=== PATIENT | male | born 1990 | race Caucasian/White ===

== ENCOUNTER 2018-07-25 09:59 | Inpatient (IN) | payer OTHER ==
[~2018-07-25] VITALS: Ht 180.3 cm; Wt 65.8 kg
--- NOTE | 2018-07-25 10:15 | NUR ---
Pre-assessment: Assessed pt in intake office,pt is alert and oriented at this time. pt is being admitted primarily for opiates as he verbalized, pt's mother accompanied pt and assisted in providing information, pt's mother said Dr. Davison (youth specialist) who prescribed pt ativan to take as needed when his is in withdrawal from opiates verbalized " he took 2 milligrams of ativan on the car ride here". pt appears to be anxious, yawning, and guarded. explained unit protocols and procedures and verbalized understanding.
--- NOTE | 2018-07-25 10:26 | NUR ---
ADMISSION Patient arrived on the unit at 1026, patient alert and oriented x4, oriented to unit and to room. 28 year old male from [facility], Patient appears disheveled, unkempt, o odorous, unshaven, dirty fingernails and unwashed clothing with poor oral hygiene. Patient has avoidant eye contact, and worried/irritable facial expression. Patient noted with flat affect and labile mood. Patients BP: 123/67 HR: 106 RR: 20, T: 98.4, PULSE OX: 98% Patient is 5 feet 11 inches. Denies any food or drug allergies. Patient currently exhibiting the following s/sx of withdrawal: agitation, anhedonia, anxiety, chills, decreased appetite, depression, difficulty concentrating, emotional volatility, fatigue, generalized discomfort, elevated heart rate, increased startle response, Enlarged pupils, and flushed, with admitting COW score of: 10. Does not currently recall the name of his primary care physician, but he is located in [place], [place]. SUBSTANCE USE/HISTORY 1. Heroin (smoked) 0.5-1 gram daily for 5.5 months, Patient reports he first used at the age of: 18 years old. Typical Withdrawal symptoms include: " increase anxiety, sweats, restlessness, insomnia, can't stay still,agitated, body aches, runny nose, watery eyes" Last used: 07/25/2018 at 0000, 0.2 grams via inhalation. 2.. Ativan (PO) 2mg "2 or 3 times this week" Patient reports he used for the first time this week. Per patient no withdrawal symptoms have been noted. Last used: 07/25/2018 at 1000, 2mg PO. Patient denies any history of seizures. Is denying any withdrawal induced cardiac complications. MEDICAL/PSYCHIATRIC CONDITIONS Diagnosis: 1. Anxiety Dx: age 21 Patient denies taking any medications for diagnosis. 2. Depression Dx: age 21. Currently taking- Brintellix 10mg PO daily. 3. Schizotypy Dx: 2015. . Currently taking- Brintellix 10mg daily. Denies any past surgical history. Denies any family history of substance abuse Denies any past family medical history. No reports of SI/HI or Involuntary psychiatric hospitalization. TREATMENT HISTORY 4-5 treatment centers, patient verbalized unable to recall the names of them. Patient reports longest period of sobriety was for two years, from April 2016-February 2018. MOTIVATION: Patient reports he began using drugs at the very beginning because they were accessible, and I didnt know any better Patient reports he uses now Because I like it Patient reports It was always hard to stop using them since the very beginning, I was hooked instantly" Verbalized decided to get sober today because Its just time, I just fucked up everything else in my life and this is what has been ruining everything, its time for a change continued to verbalize, the anxiety is too much when I try to stop on my own, I get really strong cravings that I cant control and i feel really sick and end up using again Patient reports barriers for getting/staying sober are, " I lack self discipline and it makes it hard for me to stop on my own. Verbalized support system includes, " my mom, my sponsor and my friends are my support system Patient verbalized the following consequences from using include, using drugs has affected my life negatively, I lost my job, it has fucked up every relationship I have with people, I am unhappy feeling stuck, and addicted, I am ready for change and to get off this shit" Patient verbalized, "Once Im done with detox, I wanna go to a treatment program to continue my sobriety. Patient encouraged to verbalize feeling sna encouraged diversional activities to alleviate anxiety. Educated regarding ways to develop coping skills and utilization of non pharmacological interventions. Safety measures are in place, call light with in reach. Will continue to monitor. Dr. Hartman made aware of new admission, MD will input admitting orders, will continue to monitor closely. Addendum: 07/25/18 at 1552 by ROSALINA YIN LVN Patient able to recall primary care physician name: Dr. Davison (community education specialist)
[2018-07-25] MEDS ORDERED: VORT10TA PO (11:12)
[2018-07-25 11:29] VITALS: BP 123/67
[2018-07-25] MEDS ORDERED: LOPERAMIDE HCL 2 MG CAPSULE PO PRN ×2 (12:45)
[2018-07-25] MEDS ORDERED: ONDANSETRON 4 MG/2 ML VIAL IM PRN (12:45)
[2018-07-25] MEDS ORDERED: MAG HYDROX/AL HYDROX/SIMETH 30 ML LIQUID UDC PO PRN (12:45)
[2018-07-25] MEDS ORDERED: ONDANSETRON ODT 4 MG TAB.RAPDIS SL PRN (12:45)
[2018-07-25] MEDS ORDERED: ACETAMINOPHEN 325 MG TABLET PO PRN (12:45)
[2018-07-25] MEDS ORDERED: MAGNESIUM HYDROXIDE 30 ML LIQUID UDC PO PRN (12:45)
[2018-07-25] MEDS ORDERED: DICYCLOMINE HCL 20 MG TABLET PO PRN (12:45)
[2018-07-25] MEDS ORDERED: BUPRENORPHINE HCL 2 MG TAB.SUBL SL PRN (12:45)
[2018-07-25 12:50] VITALS: BP 118/62
[2018-07-25 14:43] LABS: *AMPHETAMINE, URINE NEGATIVE (NEGATIVE); *BARBITURATE, URINE NEGATIVE (NEGATIVE); *CANNABINOID, URINE POSITIVE (NEGATIVE); *COCCAINE, URINE NEGATIVE (NEGATIVE); *OPIATE, URINE POSITIVE (NEGATIVE); *PHENCYCLIDINE SCREEN,URINE NEGATIVE (NEGATIVE)
[2018-07-25 15:12] LABS: BASOPHILS # (AUTO) 0.1 K/uL (0.0-8.0); BASOPHILS % (AUTO) 0.6 % (0.0-2.0); EOSINOPHILS # (AUTO) 0.2 K/uL (0.0-0.7); EOSINOPHILS % (AUTO) 1.3 % (0.0-7.0); HEMATOCRIT 41.9 % (36.7-47.1); HEMOGLOBIN 14.5 g/dL (12.5-16.3); LYMPHOCYTES # (AUTO) 1.8 K/uL (20.0-40.0); LYMPHOCYTES % (AUTO) 14.8 % (20.5-51.5); MEAN CORPUSCULAR HEMOGLOBIN 29.7 uug (23.8-33.4); MEAN CORPUSCULAR HGB CONC 35 g/dL (32.5-36.3); MEAN CORPUSCULAR VOLUME 85.7 fL (73.0-96.2); MONOCYTES # (AUTO) 0.7 K/uL (2.0-10.0); MONOCYTES % (AUTO) 5.7 % (0.0-11.0); NEUTROPHILS # (AUTO) 9.6 K/uL (1.8-8.9); NEUTROPHILS % (AUTO) 77.6 % (38.5-71.5); PLATELET COUNT (AUTO) 277 K/uL (152-348); RED BLOOD CELL COUNT(AUTO) 4.89 MIL/uL (4.06-5.63); WHITE BLOOD COUNT (AUTO) 12.4 K/uL (3.6-10.2)
[2018-07-25 15:23] LABS: ALANINE AMINOTRANSFERASE 25 U/L (16-63); ALKALINE PHOSPHATASE 43 U/L (50-136); ASPARTATE AMINOTRANSFERASE 23 U/L (15-37); BILIRUBIN,TOTAL 0.5 mg/dL (0.2-1.0); CARBON DIOXIDE 27 mmol/L (21-32); CHLORIDE 105 mmol/L (98-107); GLUCOSE 99 mg/dL (74-106); MAGNESIUM 2.2 mg/dL (1.8-2.4); POTASSIUM 3.8 mmol/L (3.5-5.1); TOTAL PROTEIN, SERUM 7.4 g/dL (6.4-8.2); UREA NITROGEN, BLOOD 18 mg/dL (7-18)
[2018-07-25 15:32] LABS: ETHANOL < 3 MG/DL (0-0)
[2018-07-25 15:51] LABS: THYROID STIMULATING HORMONE 0.214 mIU/mL (0.358-3.740)
[2018-07-25 16:38] VITALS: BP 122/80
[2018-07-25] MEDS: HYDROXYZINE PAMOATE 25 MG CAPSULE PO PRN ×2 (16:44→22:33)
[2018-07-25] MEDS: CLONIDINE HCL 0.1 MG TABLET PO PRN ×2 (16:44→22:32)
[2018-07-25] MEDS: METHOCARBAMOL 750 MG TABLET PO PRN ×2 (16:44→22:34)
[2018-07-25] MEDS: IBUPROFEN 600 MG TABLET PO PRN ×2 (16:44→23:00)
--- NOTE | 2018-07-25 16:44 | NUR ---
REFUSED SUBUTEX; PRN: VISTARIL/CLONIDINE/ROBAXIN/MOTRIN Refused PRN dose of: Subutex 4mg SL during shift, patient was noted exhibiting the following s/sx of withdrawal: agitation, anhedonia, anxiety, chills, decreased appetite, depression, difficulty concentrating, emotional volatility, fatigue, generalized discomfort, elevated heart rate, increased startle response, Enlarged pupils, myalgias, arthralgias, abdominal cramps, nasal congestion, moist eyes, and and flushed, with COW score of: 15, per patient does not want to begin taking Subutex at this time. Patient was administered PRN: Vistaril (for increase anxiety) , Clonidine (for increase anxiety/agitation), Robaxin (myalgia, and muscle spams) and Motrin (generalized body pain 7/10). will monitor effectiveness of medication. Will continue to monitor.
--- NOTE | 2018-07-25 16:57 | NUR ---
DRUG USE HISTORY: Patient reported to nurse, Marijuana 1 gram weekly 3-4 times a week smoked. Last used on: 07/24/2018 at 2100, 0.5gram smoked. notified.
--- NOTE | 2018-07-25 17:44 | NUR ---
VISTARIL/CLONIDINE/ROBAXIN/MOTRIN REASSESSMENT Patient verbalized feeling less anxious, noted less fidgety and less restless. clonidine and vistaril effecitve. Patient reports decrease in myalgia, current pain level 3/10, no further muscle spams noted. Generalized pain decreased, current pain level 3/10, will continue to monitor.
--- NOTE | 2018-07-25 18:58 | NUR ---
END OF SHIFT Patient admitted today during shift, with admitting Dx: opiate withdrawal. Patient continues under close observation, scheduled to begin a 3 day Subutex taper tomorrow morning.Refused PRN dose of: Subutex 4mg SL during shift, patient was noted exhibiting the following s/sx of withdrawal: agitation, anhedonia, anxiety, chills, decreased appetite, depression, difficulty concentrating, emotional volatility, fatigue, generalized discomfort, elevated heart rate, increased startle response, Enlarged pupils, myalgias, arthralgias, yawning, abdominal cramps, nasal congestion, moist eyes, and flushed, with last COW score of: 15, per patient does not want to begin taking at this time. Patient was administered PRN: Vistaril, Clonidine, Robaxin and Motrin during shift, medications effective. Encouraged patient to increase PO fluid intake as tolerated. Safety measures in place. Call light with in reach, endorsed patient to night time nanny nurse, all pertinent information was discussed.
--- NOTE | 2018-07-25 19:00 | NUR ---
START OF SHIFT Received 28 year old male admitted 07/25/18 to [facility] for medically supervised withdrawal from Opiates. Subutex 3 day taper to start 07/26/18. Last COWS 15. PRN Clonidine, Vistoril, Robaxin, and Motrin given during day shift. Pt unkempt in room irritable, restless, fidgeting, sweating, chills, nausea, stuffy nose, mild headache & body aches, anxiety, and agitation. Safety measures in place. Bed low, side rails up X2, call bertrand in reach. Will continue to monitor patient.
--- NOTE | 2018-07-25 19:37 | NUR ---
PRN Subutex Pt complaining of generalized pain, nausea, shakes, sweating, chills, yawning, and increased agitation and anxiety. COWS 12. Subutex given per order. Will monitor effect. Addendum: 07/25/18 at 2041 by ELBA ECHOLS RN COWS 15
[2018-07-25 20:02] VITALS: BP 116/68
--- NOTE | 2018-07-25 20:37 | NUR ---
Reassess PRN Subutex Pt states he feels less anxious and "better" after receiving Subutex. Will continue to monitor.
--- NOTE | 2018-07-25 22:32 | NUR ---
PRN Clonidine Pt complain of increased anxiety. PRN clonidine given per order. Will monitor effect.
--- NOTE | 2018-07-25 22:33 | NUR ---
PRN Vistaril/Robaxin Pt complains of generalized pain 8/10 which increases his anxiety and agitation. PRN Vistaril/Robaxin given per order. Will Monitor effect.
[2018-07-25] MEDS: diphenhydrAMINE 50 MG CAPSULE PO PRN (22:34)
--- NOTE | 2018-07-25 22:34 | NUR ---
PRN Benedryl Pt complains of inability to sleep. Prn Benadryl given per order. Will monitor effect.
--- NOTE | 2018-07-25 23:00 | NUR ---
PRN Motrin Pt complains of headache with general pain 05/30. PRN Motrin given per order
--- NOTE | 2018-07-25 23:30 | NUR ---
Reassess Clonidine/Vistaril/Robaxin/Benadryl/Motrin Positive effect. Pt resting in bed with eyes closed. Respirations even and unlabored. Will continue to monitor.
--- NOTE | 2018-07-26 00:05 | NUR ---
COWS deferred/Vitals refused Pt in bed resting with eyes closed. respirations even and unlabored. COWS deferred and vitals refused.
--- NOTE | 2018-07-26 04:09 | NUR ---
COWS deferred/Vitals refused Pt in bed resting with eyes closed. Respirations even and unlabored. COWS deferred. Pt refused vitals. Continue to monitor.
--- NOTE | 2018-07-26 06:46 | NUR ---
END OF SHIFT Endorsing 28 year old male admitted 07/25/[address] [facility] for medically supervised withdrawal from Opiates. Subutex 3 day taper to start this am 07/26/18. Last COWS 15 at 1999. PRN Subutex, Clonidine, Vistoril, Robaxin, Benedryl, and Motrin given during PM shift. Pt remained in room with the exception of smoking. Pt continues to be sweating, chills, nausea, stuffy nose, mild headache & body aches, anxiety, and agitation. PO intake 925ml, voided x2, BM x 0, and slept 3.5 hours. Bed low, side rails up X2, call bertrand in reach.
--- NOTE | 2018-07-26 07:30 | NUR ---
BEGINNING OF SHIFT Patient endorsement report received from assistant shift supervisor nurse, all pertinent information was discussed. Patient is a 28 year old male with admitting Dx: opiate withdrawal. Patient continues under close observation. Scheduled to begin da 3 day Subutex taper this morning. Patient received PRN: Subutex 4mg, Benadryl, Robaxin, Vistaril, and Motrin during assistant shift supervisor, as per assistant shift supervisor medications were effective. Patient slept for 4 hours, and last COW score of: 15. Received in bed with eyes closed respirations are even and unlabored. Responsive to verbal stimuli, safety measures are in place. Will educate regarding plan of care for the day and medication regimen.
[2018-07-26 08:17] VITALS: BP 92/61
[2018-07-26] MEDS: IBUPROFEN 600 MG TABLET PO PRN (08:40)
[2018-07-26] MEDS: MULTIVITAMINS,THERAPEUTIC TABLET PO SCH (08:40)
[2018-07-26] MEDS: METHOCARBAMOL 750 MG TABLET PO PRN ×2 (08:40→20:05)
[2018-07-26] MEDS: BUPRENORPHINE HCL 2 MG TAB.SUBL SL SCH ×2 (08:40→20:05)
--- NOTE | 2018-07-26 08:40 | NUR ---
PRN ROBAXIN/MOTRIN Patient c/o generalized body aches 7/10, muscle spasm, and muscle aches, administered Robaxin and Motrin as ordered, will monitor effectiveness of medications.
[2018-07-26] MEDS ORDERED: 3 DAY TAPER BUPRENORPHINE -SERENITY PROTOCOL SL PRN (09:00)
[2018-07-26] MEDS ORDERED: TUBERCULIN,PURIF.PROT.DERIV. 5 TU/0.1 ML TEST ID ONE (09:00)
--- NOTE | 2018-07-26 09:10 | NUR ---
WA ASSESSMENT Patient was noted exhibiting the following s/sx of withdrawal: agitation, anhedonia, anxiety, chills, flushed, decreased appetite, depression, difficulty concentrating, emotional volatility, fatigue, generalized discomfort, elevated heart rate, increased startle response, Enlarged pupils, myalgias, arthralgias, yawning, nasal congestion, and moist eyes with last COW score of: 13, will continue to monitor. Addendum: 07/26/18 at 1648 by ROSALINA YIN LVN TELLO GRAJEDA: " COW ASSESSMENT"
--- NOTE | 2018-07-26 09:40 | NUR ---
ROBAXIN/MOTRIN REASSESSMENT decrease in pain level, current pain level 2/10 medications were effective.
[2018-07-26] MEDS: HYDROXYZINE PAMOATE 25 MG CAPSULE PO PRN (10:02)
[2018-07-26] MEDS: CLONIDINE HCL 0.1 MG TABLET PO PRN (10:03)
--- NOTE | 2018-07-26 10:03 | NUR ---
PRN CLONIDINE/VISTARIL Patient c/o increase in anxiety, noted pacing in room, and wringing hands, noted irritable and agitated, administered clonidine and Vistaril as ordered, will monitor effectiveness of medication.
[2018-07-26 10:08] LABS: HEPATITIS B SURFACE AG Negative (Negative)
--- NOTE | 2018-07-26 11:03 | NUR ---
CLONIDINE/VISTARIL REASSESSMENT Patient verbalized feeling decrease in anxiety, noted clam and cooperative, medication effective.
--- NOTE | 2018-07-26 12:36 | NUR ---
Therapist prompted client to attend group therapy.
[2018-07-26] MEDS: TRINTELLIX 10MG TABLET PO SCH (12:40)
[2018-07-26 13:02] VITALS: BP 103/66
--- NOTE | 2018-07-26 13:15 | NUR ---
CIWA ASSESSMENT continues to present with: agitation, anhedonia, anxiety, chills, flushed, decreased appetite, depression, difficulty concentrating, emotional volatility, fatigue, generalized discomfort, elevated heart rate, increased startle response, Enlarged pupils, myalgias, arthralgias, yawning, nasal congestion, and moist eyes with last COW score of: 13, will continue to monitor. Safety measures in place. Addendum: 07/26/18 at 1648 by ROSALINA YIN LVN CORRECT NICCI: "COW ASSESSMENT"
[2018-07-26] MEDS ORDERED: 3 DAY TAPER OF VALIUM-SERENITY PROTOCOL PO PRN (13:30)
--- NOTE | 2018-07-26 13:40 | NUR ---
MD COMMUNICATION Patient was seen and examined by Dr. Hartman, per MD patient to begin a modified 3 day Valium taper, Per MD he clarified patients benzodiazepine use and added Valium taper to plan of care.
[2018-07-26] MEDS: DIAZEPAM 10 MG TABLET PO SCH ×2 (14:35→20:05)
--- NOTE | 2018-07-26 16:48 | NUR ---
COW/CIWA ASSESSMENT Was noted exhibiting the following s/sx of withdrawal: agitation, anhedonia, anxiety, chills, flushed, decreased appetite, depression, difficulty concentrating, emotional volatility, fatigue, generalized discomfort, elevated heart rate, increased startle response, Enlarged pupils, myalgias, arthralgias, yawning, nasal congestion, and moist eyes with last COW score of: 13, and CIWA score of: 8, safety measures in place. will continue to monitor.
[2018-07-26 17:03] VITALS: BP 104/63
--- NOTE | 2018-07-26 18:57 | NUR ---
END OF SHIFT Continues under close observation, patient has worried/sad facial expression. Noted guarded with anxious affect, is disheveled, unshaven, odorous with poor regards to hygiene, encouraged to self groom and maintenance of personal space. . Encouraged to continue attending group therapies/sessions to learn new coping skills to prevent relapse, noted attending and participating, denies SI/HI. Patient refused PPD test, reports he received a few months ago, and results were negative, MD aware. Continues under close observation. Patient was noted exhibiting the following s/sx of withdrawal: agitation, anhedonia, anxiety, chills, flushed, decreased appetite, depression, difficulty concentrating, emotional volatility, fatigue, generalized discomfort, elevated heart rate, increased startle response, Enlarged pupils, myalgias, arthralgias, yawning, nasal congestion, and moist eyes with last COW score of: 13 and CIWA score of: 8. Patient was seen and examined by Dr. Hartman during shift, patient started on a modified Valium taper, first dose was administered during shift. Received PRN: Vistaril, Clonidine, Robaxin and Motrin during shift, medications effective. Encouraged patient to increase PO fluid intake as tolerated. Safety measures in place. Call light with in reach, endorsed patient to security shift supervisor nurse, all pertinent information was discussed.
--- NOTE | 2018-07-26 19:15 | NUR ---
Start of Shift Note: Patient is a 28 y.o male admitted on 07/25/18 for Heroin & Ativan use. Patient also reports use of Marijuana. Patient is alert & oriented x4. Patient is on a 3-day Subutex and 3-day Valium taper which started today. Patient tolerated medications well. He received PRN Robaxin, Motrin, Vistaril and Clonidine during day shift. Last COWS 13 CIWA 8. Pt noted to be attending groups. Will continue to encourage participation in group therapies to learn new coping skills. Educated pt of current plan of care for the night and medication regimen. Encourage pt to increase fluid intake. Safety measures in place. Bed locked in lowest position. Both side rails up. Call light within pt's reach. Will continue to monitor patient.
[2018-07-26 20:00] VITALS: BP 119/67
--- NOTE | 2018-07-26 20:00 | NUR ---
COWS/CIWA Assessment Patient appears with a flushed face, disheveled and malodorous. He is guarded, has a blunt affect, anxious and irritable mood. He presented with sweating, chills, 6/10 generalized body aches, stuffy nose, fine tremors, depressed, mild headache & anhedonia. COWS 11 CIWA 11 noted.
--- NOTE | 2018-07-26 20:05 | NUR ---
PRN Robaxin Patient noted with restlessness and complains of 6/10 generalized body aches. PRN Robaxin administered as ordered. Will monitor for effectiveness of medication.
--- NOTE | 2018-07-26 21:05 | NUR ---
PRN Reassessment Patient verbalized effectiveness of medication. He verbalized decreased in pain from 6/10 to 3/10 after medication administration. Pt in bed and watching TV at this time. Will continue to monitor patient.
[2018-07-27] VITALS: BP 103/66
[2018-07-27] MEDS: HYDROXYZINE PAMOATE 25 MG CAPSULE PO PRN ×3 (00:10→22:08)
--- NOTE | 2018-07-27 00:10 | NUR ---
PRN Vistaril Patient noted to be restless and anxious in bed. PRN Vistaril administered as ordered. Will monitor for effectiveness of medication.
--- NOTE | 2018-07-27 01:10 | NUR ---
PRN Reassessment Patient asleep in bed and appears calm & comfortable. No facial grimacing noted. Safety measures in place. will continue to monitor patient.
--- NOTE | 2018-07-27 04:00 | NUR ---
Cows/Ciwa deferred/Vitals refused Patient noted waking up intermittently throughout the night and refused to be woken up for vitals when he is asleep. Respiration even & unlabored. Unable to assess Cows & Ciwa at this time. Will reassess when pt's awake. Safety measures in place. Will continue to monitor patient.
--- NOTE | 2018-07-27 07:05 | NUR ---
End of Shift Note: Patient still asleep at this time. He remained alert & oriented x4. Initial COWS 11 CIWA 11. Pt presented with anxiety, agitation, sweating, chills, myalgias, stuffy nose, fine tremors, depressed, mild headache & anhedonia. He is on 3-day Subutex and 3-day Valium taper and tolerated well. Last COWS 9 CIWA 9. He received Robaxin and Vistaril and were effective. Pt remained stable and vitals noted WNL. All due medications given and all needs attended. Pt slept intermittently for 4 hours. Fluid intake:1200ml. Voided 1x with no BM noted. Safety measures in place. Will endorse pt to day shift nurse.
[2018-07-27 08:00] VITALS: BP 99/60
--- NOTE | 2018-07-27 08:01 | NUR ---
START OF SHIFT NOTE Received report from night nurse, patient is 28 year old male admitted for Opioids and Benzo withdrawal and continues with Subutex and Valium taper tolerating well. Per endorsement patient received PRN Robaxin and Vistaril effective per night nurse, slept for 4 hours and last CIWA score was 9, COWS-9. Received patient alert awake oriented x4 with labile facial expression, anxious, agitated, bilateral hand tremors. Patient is due for scheduled medications. All safety measures in place, Call light within reach. Will cont to monitor.
[2018-07-27] MEDS: DIAZEPAM 5 MG TABLET PO SCH ×3 (08:52→20:22)
[2018-07-27] MEDS: MULTIVITAMINS,THERAPEUTIC TABLET PO SCH (08:52)
[2018-07-27] MEDS: BUPRENORPHINE HCL 2 MG TAB.SUBL SL SCH ×3 (08:52→20:23)
[2018-07-27] MEDS: TRINTELLIX 10MG TABLET PO SCH (08:56)
[2018-07-27] MEDS: IBUPROFEN 600 MG TABLET PO PRN (08:56)
[2018-07-27] MEDS: METHOCARBAMOL 750 MG TABLET PO PRN ×2 (08:56→22:10)
--- NOTE | 2018-07-27 08:56 | NUR ---
CIWA/COWS ASSESSMENT CIWA score-11, COWS-10, patient presented with chills, difficulty sitting still, body aches, stuffy nose, stomach cramps, yawning, bilateral hand tremors, anxiety, agitation, sweats. patient was given his scheduled medications along with PRN Motrin 600mg PO for body aches 03/30, Robaxin 750mg PO for muscle spasms 02/27. Will cont to monitor and reassess the patient.
--- NOTE | 2018-07-27 09:56 | NUR ---
PRN MEDICATIONS REASSESSMENT Per patient Motrin and Robaxin was effective in lowering body aches and muscle spasms with pain scale of 2/10.
[2018-07-27 12:00] VITALS: BP 126/64
--- NOTE | 2018-07-27 12:00 | NUR ---
CIWA/COWS ASSESSMENT CIWA score-10, COWS-9, patient presented with flat facial expression, chills, difficulty sitting still, body aches, stuffy nose, stomach cramps, bilateral hand tremors, anxiety, agitation, sweats. Will cont to monitor.
--- NOTE | 2018-07-27 13:48 | NUR ---
Therapist prompted client to attend all group therapy sessions.
[2018-07-27 16:00] VITALS: BP 117/68
--- NOTE | 2018-07-27 16:00 | NUR ---
CIWA/COWS ASSESSMENT CIWA score-10, COWS-10, patient presented with flat facial expression,unkempt room, worried, anhedonia, chills, difficulty sitting still, body aches, stuffy nose, bilateral hand tremors, anxiety, agitation, sweats. patient was given his scheduled medications.
[2018-07-27] MEDS: GABAPENTIN 300 MG CAPSULE PO SCH (16:32)
[2018-07-27] MEDS: CLONIDINE HCL 0.1 MG TABLET PO PRN (17:52)
--- NOTE | 2018-07-27 17:52 | NUR ---
PRN CLONIDINE Patient reported increased in anxiety, agitation, sweats, chills. PRN Clonidine 0.1mg PO was administered as ordered. Will cont to monitor and reassess.
--- NOTE | 2018-07-27 18:52 | NUR ---
CLONIDINE REASSESSMENT Per patient Clonidine was effective anxiety and agitation subsided.
--- NOTE | 2018-07-27 19:00 | NUR ---
Start of Shift Received 28 year old male admitted 07/25/18 to [facility] for medically supervised withdrawal from Opiates. PRN Robaxin, Motrin, and Clonidine given during day shift. PT currently on 3 day Subutex and 3 day Modified Ativan taper tolerating well.. Last COWS CI 10 @ 1600. Pt in dark messy room unshaven, complains of anxiety, guarded, withdrawn, isolative, and agitated when asked any questions. Bed low, side rails up x 2 and call bertrand in reach. Will continue to monitor.
--- NOTE | 2018-07-27 19:01 | NUR ---
END OF SHIFT NOTE Gave report to night nurse, 28 year old male patient admitted for Benzo/Opioids withdrawal and continues with Subutex and Valium taper tolerating well. Patient presented with sad facial expression, anhedonia, anxiety, agitation, restless, sweats, general body discomfort, bilateral hand tremors. Patient was given schedule medications along with PRN Robaxin, Motrin, Clonidine noted to be effective. Last CIWA-10, COWS-10. Patient denies any SI/HI. Vital signs WNL. Patient noted attending groups and activities. Encourage PO fluids as tolerated. All needs attended. All safety measures in place, call light within reach. Patient endorse to night nurse in stable condition.
--- NOTE | 2018-07-27 20:00 | NUR ---
COWS 6/CIWA 7 Pt anxious and agitated, denies chills, sweating, pain, or hallucinations.
--- NOTE | 2018-07-27 20:00 | NUR ---
1999 CORRECTED COWS 10 CIWA 11
[2018-07-27 20:03] VITALS: BP 109/62
[2018-07-27] MEDS: diphenhydrAMINE 50 MG CAPSULE PO PRN (22:07)
--- NOTE | 2018-07-27 22:07 | NUR ---
PRN Benadryl/Vistaril/Robaxin Pt complain of insomnia, generalized pain 5/10, and feeling anxious. Benadryl/Vistaril/Robaxin given per order. Will monitor effect.
--- NOTE | 2018-07-27 23:07 | NUR ---
Reassess PRN Benadryl/Vistaril/Robaxin Medication effective. Pt resting in bed. Verbalizes decreased anxiety and pain /10. Continue to monitor.
--- NOTE | 2018-07-28 | NUR ---
COWS 6/ CIWA 7 Pt complains of feeling anxious. Pt withdrawn with flat affect.
[2018-07-28] MEDS: CLONIDINE HCL 0.1 MG TABLET PO PRN ×3 (00:13→20:40)
[2018-07-28 00:15] VITALS: BP 113/63
--- NOTE | 2018-07-28 00:15 | NUR ---
PRN Clonidine/COWS/CIWA Pt returned from smoking and complained of anxiety. PRN Clonidine given per order. Will monitor effect. COWS 6/CIWA 7
--- NOTE | 2018-07-28 01:13 | NUR ---
Reassess PRN Clonidine Medication effective. Pt resting with eyes closed. Respirations even and unlabored. Continue to monitor.
--- NOTE | 2018-07-28 04:06 | NUR ---
COWS/CIWA deferred / Vitals refused Pt resting with eyes closed. Respirations even and unlabored. COWS?CIWA deferred. Pt refused vitals.
--- NOTE | 2018-07-28 06:50 | NUR ---
End of Shift Endorsing 28 year old male admitted 07/25/18 to [facility] for medically supervised withdrawal from Opiates. PRN Benadryl, Vistoril, Robaxin, and Clonidine given during mold shifter. Pt currently on day 3 of 3 day Subutex and 3 day Modified Ativan taper tolerating well.. Last COWS /CIWA 7 @ 0000. With the exception of going to smoke, Pt remained in room through night. Continued to complain of anxiety, is isolative, flat affect and guarded. PO intake 750 ml, voided x 2, BM x 0, and slept x 5 hours. Bed low, side rails up x 2 and call bertrand in reach.
--- NOTE | 2018-07-28 07:24 | NUR ---
START OF SHIFT Pt is a 28 yr old male, AA&Ox4. Pt was admitted on 07/25/18 for Opiate/Benzo withdrawal and is on 3 day Valium and Subutex taper as ordered. Received report from nightclub manager nurse. Pt received Benadryl PRN. Vistaril PRN, Robaxin PRN and Clonidine PRN during the night. Pt slept fro 5 hrs. Last CIWA score was 7 and COWS score was 6 at 0000. Pt is currently in bed resting with respirations even and unlabored. Pt states of having difficulty time sleeping during the night. Pt is c/o anxiety, agitation, fatigue, restlessness, sweats and chills. Pt's room is noted disheveled with dirty clothes on the floor and foul odor noted. Safety precautions observed. Call light is within reach. Will continue to monitor.
[2018-07-28 08:00] VITALS: BP 92/46
[2018-07-28] MEDS ORDERED: BUPRENORPHINE HCL 2 MG TAB.SUBL SL SCH (09:00)
[2018-07-28] MEDS ORDERED: DIAZEPAM 5 MG TABLET PO SCH (09:00)
--- NOTE | 2018-07-28 10:00 | NUR ---
COWS AND CIWA ASSESSMENT Pt was observed with flat affect, avoidant in eye contact and is observed with facial sweats. Pt is c/o anxiety, agitation, fatigue, restlessness, lack of appetite and states he feels depressed. CIWA score was 9 and COWS score was 6. Pt was administered Phenobarbital 30mg PO and Subutex 2mg SL as scheduled at 0900. medication was dillon well. Pt was encouraged to attend group therapy. Will continue to monitor.
[2018-07-28] MEDS: GABAPENTIN 300 MG CAPSULE PO SCH ×3 (10:01→17:57)
[2018-07-28] MEDS: MULTIVITAMINS,THERAPEUTIC TABLET PO SCH (10:02)
[2018-07-28] MEDS: TRINTELLIX 10MG TABLET PO SCH (10:02)
--- NOTE | 2018-07-28 12:00 | NUR ---
COWS AND CIWA ASSESSMENT Pt continues to be observed wtih flat affect, avoidant in eye contact and facial sweats. Pt's room remains disheveled with dirty clothes on the floor. Pt is c/o anxiety, agitation, fatigue and restlessness. CIWA score was 7 and COWS score was 6. encouraged increase fluid intake for hydration. Will continue to monitor.
[2018-07-28 12:05] VITALS: BP 113/63
--- NOTE | 2018-07-28 12:41 | NUR ---
Therapist prompted client to attend group therapy sessions.
[2018-07-28] MEDS ORDERED: IBUP-1955 PO (15:09)
[2018-07-28] MEDS ORDERED: HYDR-3895 PO (15:09)
[2018-07-28] MEDS ORDERED: CLON0.1T14 PO (15:09)
[2018-07-28] MEDS ORDERED: DIPH50CA37 PO (15:09)
[2018-07-28] MEDS ORDERED: GABA-534 PO (15:09)
[2018-07-28] MEDS ORDERED: METH-406 PO (15:09)
[2018-07-28 16:00] VITALS: BP 118/69
[2018-07-28] MEDS: HYDROXYZINE PAMOATE 25 MG CAPSULE PO PRN ×2 (17:59→20:40)
--- NOTE | 2018-07-28 18:00 | NUR ---
PRN GIVEN Pt was c/o increase anxiety due to discharged for tomorrow on 07/28/18. Pt was given Clonidine 0.1mg PO PRN and Vistaril 50mg PO PRN for anxiety. Medication was dillon well. Will continue to monitor.
--- NOTE | 2018-07-28 19:00 | NUR ---
END OF SHIFT Pt is a 28 yr old male, AA&Ox4. Pt has been cooperative with medication regimen and plan of care. Pt was encouraged to attend group therapy and agreed to attend. Pt was c/o increase anxiety with agitation due to discharged for tomorrow on 07/29/18. Pt was given Clonidine 0.1mg PO PRN and Vistaril 50mg PO PRN at 1800. Medication was mildly effective and continues to c/o anxiety. Pt has been noted with flat affect, avoidant in eye contact, restlessness and increase fatigue. Last COWS score was 8 and CIWA score was 11 at 1600. Pt was encouraged increase fluid intake for hydration. Safety precautions observed. Endorsed to bill sorter nurse to continue with care.
--- NOTE | 2018-07-28 19:49 | NUR ---
START OF SHIFT NOTE Rcvd report from outgoing nurse. Pt is a 28 y/o male A/O to person, place, time, and purpose. Pt was admitted for medically supervised withdrawal from Heroin and Ativan. Pt completed a 3 day Subutex and Valium taper. Pt has been presenting w/ flat affect, anxiety, depressed and withdrawn mood, and body aches. PRN Clonidine and Vistaril were given and noted effective by outgoing nurse. Last CIWA 11 and COWS 8 @ 1600. Call light is within reach. Pt will continue to be monitored and needs met.
[2018-07-28 20:07] VITALS: BP 109/64
--- NOTE | 2018-07-28 20:10 | NUR ---
CIWA AND COWS ASSESSMENT CIWA 11 and COWS 8. Pt has been presenting w/ flat affect, anxiety, depressed and withdrawn mood, and body aches. V/S: T:98.5, P:85, RR:18, SPO2:100, BP:109/64.
[2018-07-28] MEDS: diphenhydrAMINE 50 MG CAPSULE PO PRN (20:40)
--- NOTE | 2018-07-28 20:40 | NUR ---
PRN BENADRYL ADMINISTRATION Benadryl 50mg given for sleep. Pt c/o insomnia. Will reassess pt in 1 hr.
[2018-07-28] MEDS: METHOCARBAMOL 750 MG TABLET PO PRN (20:43)
--- NOTE | 2018-07-28 21:40 | NUR ---
REBEKAH STALEY REASSESSMENT Pt is in bed. Pt states they feel like they have the ability to fall asleep. Will continue to monitor pt.
--- NOTE | 2018-07-29 00:04 | NUR ---
CIWA AND COWS ASSESSMENT CIWA 11 and COWS 8. Pt has been presenting w/ flat affect, anxiety, depressed and withdrawn mood, and body aches. V/S: T:98.4, P:89, RR:16, SPO2:99, BP:112/71
--- NOTE | 2018-07-29 00:05 | NUR ---
CIWA AND COWS DEFERRED. V/S REFUSED Pt is in bed w/ his eyes closed. Pt's respirations are unlabored and even. Addendum: 07/29/18 at 0010 by ORVILLE JANE RN Wrong patient.
[2018-07-29 00:13] VITALS: BP 112/71
[2018-07-29] MEDS: HYDROXYZINE PAMOATE 25 MG CAPSULE PO PRN (00:13)
[2018-07-29] MEDS: CLONIDINE HCL 0.1 MG TABLET PO PRN (00:13)
--- NOTE | 2018-07-29 00:13 | NUR ---
PRN CLONIDINE AND VISTARIL ADMINISTRATION Clonidine 0.1mg and Vistaril 50mg given for anxiety and agitation/restlessness. Will reassess pt in 1 hr.
--- NOTE | 2018-07-29 01:13 | NUR ---
PRN CLONIDINE AND VISTARIL REASSESSMENT Pt is in bed w/ his eyes closed. Pt's respirations are unlabored and even.
--- NOTE | 2018-07-29 04:07 | NUR ---
CIWA AND COWS DEFERRED Pt is in bed w/ his eyes closed. Pt's respirations are unlabored and even.
--- NOTE | 2018-07-29 07:11 | NUR ---
END OF SHIFT NOTE Endorsed pt to the oncoming nurse. Pt is a 28 y/o male A/O to person, place, time, and purpose. Pt was admitted for medically supervised withdrawal from Heroin and Ativan. Pt completed a 3 day Subutex and Valium taper. Pt is being discharged on 07/29. Pt continues presenting w/ flat affect, anxiety, depressed and withdrawn mood, and body aches. Pt denies any S/I or H/I. PRN Benadryl 50mg, Robaxin 750mg, Clonidine 0.1mg, and Vistaril 50mg were given and noted effective. Pts fluid intake was 1000ml and he slept for 8hrs. Last CIWA 11 and COWS 8 @ 0000. Call light is within reach.
--- NOTE | 2018-07-29 07:22 | NUR ---
START OF SHIFT Pt is a 28 yr old male, AA&Ox4. Pt was admitted on 07/25/18 for Opiate/Benzo withdrawal and has completed a 3 day Valium and Subutex taper as ordered. Received report from slot shift manager nurse. Pt received Benadryl PRN, Vistaril PRN, Robaxin PRN and Clonidine PRN during the night. Pt slept for 8 hrs. Last CIWA score was 11 and COWS score was 8. Pt is currently in bed resting with respirations even and unlabored. Pt is c/o anxiety and agitation due to discharged. Pt is noted with flat affect and avoidant in eye contact. Pt is to be discharged today to [facility]. Pt's room is noted disheveled with dirty clothes on the floor and foul odor noted. Safety precautions observed. Call light is within reach. Will continue to monitor.
[2018-07-29] MEDS: TRINTELLIX 10MG TABLET PO SCH (09:07)
[2018-07-29] MEDS: GABAPENTIN 300 MG CAPSULE PO SCH (09:07)
[2018-07-29] MEDS: MULTIVITAMINS,THERAPEUTIC TABLET PO SCH (09:07)
--- NOTE | 2018-07-29 09:50 | NUR ---
DISCHARGE NOTE Pt is a 28 yr old male, AA&Ox4. pt was admitted on 07/25/18 for Opiate/Benzo withdrawal and completed a 3 day Subutex and 3 day Valium taper as ordered. Pt has been cooperative with medication regimen and plan of care. Pt was c/o anxiety due to discharged but is able to cope with anxiety level. No SI/HI noted. Pt was educated on discharged summary and prescriptions. Pt was able to verbalize understanding. Pt was discharged off the unit at 0940 in stable condition. Pt was discharged to [place] [facility]. Pt left with all belongings, valuables and home medications.
== END 2018-07-29 09:40 | disposition other institution (70) | DRG 895 ==
LOC: SRC 10:04
PROVIDERS: ADMIT Family Medicine Addiction Medicine; ATTEND Family Medicine Addiction Medicine
PROC: HZ2ZZZZ Detoxification Services for Substance Abuse Treatment (ICD-10-PCS; principal; 2018-07-25)
PROC: HZ41ZZZ Group Counseling for Substance Abuse Treatment, Behavioral (ICD-10-PCS; 2018-07-26)
PROC: HZ31ZZZ Individual Counseling for Substance Abuse Treatment, Behavioral (ICD-10-PCS; 2018-07-28)
DX: F11.23 Opioid dependence with withdrawal (principal); F33.1 Major depressive disorder, recurrent, moderate; F17.210 Nicotine dependence, cigarettes, uncomplicated; F13.239 Sedative, hypnotic or anxiolytic dependence with withdrawal, unspecified; F41.9 Anxiety disorder, unspecified
CPT/HCPCS: 36415; 70030-TC; 80307; 80349; 80361; 83735; 84443; 85025; 86580; 86592; 86705; 86803; 87340; 87806; G0480; Q0163

== ENCOUNTER 2018-09-08 12:59 | Inpatient (IN) | payer OTHER ==
[~2018-09-08] VITALS: Ht 180.3 cm; Wt 72.6 kg
[~2018-09-08 12:59] MED LIST: CLON0.1T14 PO; DIPH50CA37 PO; GABA-534 PO; HYDR-3895 PO; IBUP-1955 PO; METH-406 PO; VORT10TA PO
--- NOTE | 2018-09-08 14:15 | NUR ---
pre-assessment note: pt is moderately intoxicated pt used heroin prior to coming in pt cannot open his eyes and is nodding in and out. pt's mother is assisting in giving information, pt and mother verbalize that the pt has bipolar and schizotype and was taking trintellix, but at [facility] they completely discontinued it and has not been taking it since. explained protocols and procedures. and pt verbalized understanding
--- NOTE | 2018-09-08 14:51 | NUR ---
PRN valium 10 mg was administered for for increased anxiety , agitation and restlessness. pt states he has extreme anxiety and is uncomfortable. was not ready for subutex. will reassess effectiveness of medication.
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
[2018-09-08] MEDS ORDERED: POLY119P2 PO (16:34)
[2018-09-08] MEDS ORDERED: MELA5TAB PO (16:34)
[2018-09-08] MEDS ORDERED: ASPI-966 PO (16:34)
[2018-09-08] MEDS ORDERED: IBUP200C2 PO (16:34)
[2018-09-08] MEDS ORDERED: LOPERAMIDE HCL 2 MG CAPSULE PO PRN ×2 (17:00)
[2018-09-08] MEDS ORDERED: MAG HYDROX/AL HYDROX/SIMETH 30 ML LIQUID UDC PO PRN (17:00)
[2018-09-08] MEDS ORDERED: ONDANSETRON ODT 4 MG TAB.RAPDIS SL PRN (17:00)
[2018-09-08] MEDS ORDERED: MIRALAX 17 GM POWD.PACK PO PRN (17:00)
[2018-09-08] MEDS ORDERED: IBUPROFEN 600 MG TABLET PO PRN (17:00)
[2018-09-08] MEDS ORDERED: ONDANSETRON 4 MG/2 ML VIAL IM PRN (17:00)
[2018-09-08] MEDS ORDERED: DIAZEPAM 10 MG TABLET PO PRN ×2 (17:00)
[2018-09-08] MEDS ORDERED: MAGNESIUM HYDROXIDE 30 ML LIQUID UDC PO PRN (17:00)
[2018-09-08] MEDS ORDERED: DIAZEPAM 5 MG TABLET PO PRN (17:00)
[2018-09-08] MEDS ORDERED: ACETAMINOPHEN 325 MG TABLET PO PRN (17:00)
[2018-09-08] MEDS ORDERED: BUPRENORPHINE HCL 2 MG TAB.SUBL SL PRN (17:00)
[2018-09-08] MEDS ORDERED: LORAZEPAM 2 MG/1 ML VIAL IM PRN (17:00)
[2018-09-08 18:11] VITALS: BP 122/76
--- NOTE | 2018-09-08 19:17 | NUR ---
end of shift note: pt is in bed sleeping without complaints, pt is admitted for opiates and benzo withdrawal/dependence. pts last cows 8 and ciwa 12. pt appears calm and less restless and agitated. pt will start taper 09/09/18 at 0900 am. no A/r to valium at this time. will endorse pt to night warehouse selector nurse.
--- NOTE | 2018-09-08 19:30 | NUR ---
Start of shift note Received report from day shift nurse. Patient is a 28 year old male newly admitted for Benzodiazepine and Opiate withdrawal. Patient is on PRN Subutex and Valium. Patient was given PRN Valium. Last COWS 8 and CIWA 12. Patient presents with flat affect, poor eye contact, anxiety, agitation, restlessness, irritable, guarded and blunted . Relaxation provided. Will continue to monitor.
[2018-09-08 20:00] VITALS: BP 106/61
--- NOTE | 2018-09-08 20:00 | NUR ---
COWS and CIWA Patient reports anxiety, agitation and restlessness, intermittent sweating, tremors felt but not observed. COWS 7 and CIWA 10.
--- NOTE | 2018-09-09 | NUR ---
COWS and CIWA deferred Patient lying in bed with eyes closed. Respiration even and unlabored. Will continue to monitor Addendum: 09/09/18 at 0657 by LUCY ORTIZ LVN VS refused
--- NOTE | 2018-09-09 04:00 | NUR ---
COWS and CIWA deferred Patient lying in bed with eyes closed. Respiration even and unlabored. Will continue to monitor. Refused VS
--- NOTE | 2018-09-09 06:55 | NUR ---
COWS and CIWA deferred Patient lying in bed with eyes closed. Respiration even and unlabored. Will continue to monitor.Refused VS Addendum: 09/09/18 at 0656 by LUCY ORTIZ LVN error: wrong time
--- NOTE | 2018-09-09 07:04 | NUR ---
End of shift note Patient alert and oriented x 4. Patient on 5 day Subutex and Valium taper, to start today. Patient presented with flat affect, poor eye contact, anxiety, agitation, restlessness, irritable, guarded and blunted . Patient did not require PRN medication. Last COWS 7 and CIWA 10. Will continue to monitor. Patient slept 7 hours. Fluid intake 1,256 ml. Voided x 1. No BM.
--- NOTE | 2018-09-09 07:30 | NUR ---
Start of Shift Physical Science Teacher received report on 28 year old male admitted to [facility] on 09/08/18 for medical management of Opiate and Benzodiazepine withdrawals. Pt endorses NKA, full code and regular diet. Pt denies any PMH. Endorses PPH of anxiety, depression and Schizoaffective Bipolar type. Pt currently on 5 day Valium and 5 day Subutex tapers. Pts last CIWA 10 and COWS 7. Pt not administered any PRN medications on NOC, per report. Physical Science Teacher encounters pt in pts room with pt resting with eyes close. Even and unlabored respirations noted. Bed in low position with wheels locked and side rails up x2.
[2018-09-09 07:49] LABS: BASOPHILS # (AUTO) 0.1 K/uL (0.0-8.0); BASOPHILS % (AUTO) 0.9 % (0.0-2.0); EOSINOPHILS # (AUTO) 0.1 K/uL (0.0-0.7); EOSINOPHILS % (AUTO) 1.7 % (0.0-7.0); HEMATOCRIT 40.5 % (36.7-47.1); HEMOGLOBIN 14.1 g/dL (12.5-16.3); LYMPHOCYTES % (AUTO) 23.2 % (20.5-51.5); MEAN CORPUSCULAR HEMOGLOBIN 30.1 uug (23.8-33.4); MEAN CORPUSCULAR HGB CONC 35 g/dL (32.5-36.3); MEAN CORPUSCULAR VOLUME 86.6 fL (73.0-96.2); MONOCYTES # (AUTO) 0.5 K/uL (2.0-10.0); MONOCYTES % (AUTO) 6.2 % (0.0-11.0); NEUTROPHILS # (AUTO) 5.7 K/uL (1.8-8.9); PLATELET COUNT (AUTO) 287 K/uL (152-348); RED BLOOD CELL COUNT(AUTO) 4.68 MIL/uL (4.06-5.63); WHITE BLOOD COUNT (AUTO) 8.4 K/uL (3.6-10.2)
[2018-09-09 07:59] LABS: ETHANOL < 3 MG/DL (0-0)
--- NOTE | 2018-09-09 08:00 | NUR ---
CIWA 11/COWS 14 Pt is diaphoretic, anxious, tremulous and restless. Pt with runny nose, yawning and complains of TH, myalgia and chills. Will continue to monitor, support and encourage according to plan of care.
[2018-09-09 08:03] LABS: ALANINE AMINOTRANSFERASE 69 U/L (16-63); ALKALINE PHOSPHATASE 42 U/L (50-136); ASPARTATE AMINOTRANSFERASE 20 U/L (15-37); BILIRUBIN,TOTAL 0.5 mg/dL (0.2-1.0); CARBON DIOXIDE 28 mmol/L (21-32); CHLORIDE 103 mmol/L (98-107); CREATININE 1.1 mg/dL (0.6-1.3); GLUCOSE 101 mg/dL (74-106); POTASSIUM 3.8 mmol/L (3.5-5.1); TOTAL PROTEIN, SERUM 7.2 g/dL (6.4-8.2); UREA NITROGEN, BLOOD 18 mg/dL (7-18)
[2018-09-09 08:17] LABS: THYROID STIMULATING HORMONE 0.708 mIU/mL (0.358-3.740)
[2018-09-09 08:30] VITALS: BP 108/64
[2018-09-09] MEDS ORDERED: 5 DAY TAPER BUPRENORPHINE -SERENITY PROTOCOL SL PRN (09:00)
[2018-09-09] MEDS ORDERED: 5 DAY TAPER VALIUM-SERENITY PROTOCOL PO PRN (09:00)
[2018-09-09] MEDS ORDERED: TUBERCULIN,PURIF.PROT.DERIV. 5 TU/0.1 ML TEST ID ONE (09:00)
[2018-09-09] MEDS: MULTIVITAMINS,THERAPEUTIC TABLET PO SCH (09:35)
[2018-09-09] MEDS: DIAZEPAM 10 MG TABLET PO SCH ×3 (09:38→20:44)
[2018-09-09] MEDS: BUPRENORPHINE HCL 2 MG TAB.SUBL SL SCH ×4 (09:38→20:53)
[2018-09-09 12:00] VITALS: BP 117/68
--- NOTE | 2018-09-09 12:00 | NUR ---
CIWA 14/COWS 14 Pt is diaphoretic, tremulous, anxious and restless. Complains of chills, myalgia, nausea and TH. Pt is yawning and has a runny nose. Will continue to monitor, support and encourage according to plan of care.
[2018-09-09 16:00] VITALS: BP 106/66
--- NOTE | 2018-09-09 16:05 | NUR ---
Endorsement Personal Chef endorsed care of pt to GIANCARLO Coley with no further comments, questions or concerns voiced. Will continue to monitor, support and encourage according to plan of care.
--- NOTE | 2018-09-09 16:10 | NUR ---
Assumed Care: Received pt from GIANCARLO Watts. Will continue to monitor
--- NOTE | 2018-09-09 16:15 | NUR ---
COWS 11 CIWA 10 Pt noted with flushing, restlessness, moderate anxiety/agitation. COWS 11 CIWA 10
--- NOTE | 2018-09-09 17:00 | NUR ---
Subutex refused: Pt refused 1700 dose of Subutex. Pt stated he would like to see how he feels without Subutex. Educated pt about medication refusal and possible risks. Pt verbalized understanding.
[2018-09-09] MEDS ORDERED: ASPIRIN/ACETAMINOPHEN/CAFFEINE TABLET PO PRN (18:45)
--- NOTE | 2018-09-09 19:01 | NUR ---
End of Shift Notes: Pt currently in room, resting. Pt had no complaints during shift. Last COWS was 10 and CIWA was 11. Pt was seen by MD and Psychiatrist with new order for migraines. Pt continues on Subutex and Valium taper to manage withdrawal symptoms. Fall precautions observed. Bed in lowest position. Side rails up x2. Call light functioning and within reach. All needs attended and met. Will endorse to glove factory sewer nurse.
--- NOTE | 2018-09-09 19:30 | NUR ---
Start of shift note Received report from day shift nurse. Patient is a 28 year old male admitted for Benzodiazepine and Opiate withdrawal. Patient is on 1st day of his 5 day Valium and 5 day Subutex taper. Patient refused Subutex at 1700. Patient did not require PRN medication. Last COWS 11 and CIWA 10. Patient alert and oriented x 4. Patient presents with flat affect, depressed mood, pressured speech and anxious. Patient appears disheveled and odorous. Room is dirty, garbage around room and lines dirty-refused change. Safety measures in place. Will continue to monitor
[2018-09-09 20:00] VITALS: BP 109/63
--- NOTE | 2018-09-09 20:00 | NUR ---
COWS and CIWA assessment Patient reports increased anxiety, restlessness, irritability, agitation, intermittent perspiration, yawning and fine tremor. COWS 10 and CIWA 10
[2018-09-09] MEDS: HYDROXYZINE PAMOATE 25 MG CAPSULE PO PRN (20:50)
[2018-09-09] MEDS: diphenhydrAMINE 50 MG CAPSULE PO PRN (20:51)
[2018-09-09] MEDS: CLONIDINE HCL 0.1 MG TABLET PO PRN (20:51)
--- NOTE | 2018-09-09 20:51 | NUR ---
PRN Vistaril, Benadryl and Catapres administration Patient reports increased anxiety. Patient requests sleep aid. Will monitor for effectiveness
--- NOTE | 2018-09-09 21:51 | NUR ---
PRN Vistaril and Catapres re-assessment Patient states Vistaril and Catapres are helpful and effective. Patient is less anxious
--- NOTE | 2018-09-09 22:30 | NUR ---
PRN Benadryl re-assessment Patient lying in bed with eyes closed. Respiration even and unlabored. Will continue to monitor.
[2018-09-10] VITALS: BP 112/69
--- NOTE | 2018-09-10 | NUR ---
COWS and CIWA deferred Patient lying in bed with eyes closed. Respiration even and unlabored. Will continue to monitor.
[2018-09-10 04:00] VITALS: BP 100/72
--- NOTE | 2018-09-10 04:00 | NUR ---
COWS and CIWA deferred Patient lying in bed with eyes closed. Respiration even and unlabored. Will continue to monitor.
--- NOTE | 2018-09-10 05:39 | NUR ---
COWS and CIWA deferred Patient lying in bed with eyes closed. Respiration even and unlabored. Will continue to monitor. Addendum: 09/10/18 at 0540 by LUCY ORTIZ LVN Error:time charted
--- NOTE | 2018-09-10 07:09 | NUR ---
End of shift note Patient alert and oriented x 4. Patient presented with flat affect, depressed mood, pressured speech and anxious. Scheduled medication and taper given as ordered, tolerated well. Patient was given PRN Vistaril, Benadryl and Catapres, effective. Safety measures in place. Will continue to monitor . Patient slept 6 hours. Fluid intake1,105 ml. Voided x 4. No BM. Last COWS 10 and CIWA 10.
--- NOTE | 2018-09-10 07:30 | NUR ---
Start of Shift Paper Cap Machine Operator received report on 28 year old male admitted to [facility] on 09/08/18 for medical management of Opiate and Benzodiazepine withdrawals. Pt endorses NKA, full code and regular diet. Pt denies any PMH. Endorses PPH of anxiety, depression and Schizoaffective Bipolar type. Pt currently on 5 day Valium and 5 day Subutex tapers. Pts last CIWA 10 and COWS 10, per NOC report. Pt administered Benadryl(insomnia) and Clonidine/Vistaril(anxiety) as PRN medications on NOC, per report. Paper Cap Machine Operator encounters pt in pts room with pt resting with eyes close. Even and unlabored respirations noted. Bed in low position with wheels locked and side rails up x2. Will continue to monitor, support and encourage according to plan of care
[2018-09-10 08:00] VITALS: BP 92/52
--- NOTE | 2018-09-10 08:00 | NUR ---
CIWA 10/COWS 11 Pt is anxious, restless, tremulous and has moist skin, with complaints of chills. Pt has a stuffy nose and yawns during assessment. Will continue to monitor, support and encourage according to plan of care.
[2018-09-10 08:06] LABS: HEPATITIS B SURFACE AG Negative (Negative)
[2018-09-10] MEDS: DIAZEPAM 5 MG TABLET PO SCH ×4 (09:03→21:51)
[2018-09-10] MEDS: MULTIVITAMINS,THERAPEUTIC TABLET PO SCH (09:03)
[2018-09-10] MEDS: BUPRENORPHINE HCL 2 MG TAB.SUBL SL SCH ×3 (09:04→21:50)
--- NOTE | 2018-09-10 12:00 | NUR ---
CIWA 8/COWS 10 Pt is anxious, restless, moist skin and fine tremors. Pt yawns and is labile and irritable. Will continue to monitor, support and encourage according to plan of care.
[2018-09-10 12:25] VITALS: BP 117/58
--- NOTE | 2018-09-10 14:06 | NUR ---
Therapist prompted client to attend group therapy.
--- NOTE | 2018-09-10 15:00 | NUR ---
Subutex Refusal Pt refuses scheduled dose of Subutex, stating, " I want to see how I feel after not taking it." Windows Mobile Developer educated pt on risks of being non-compliant with MD orders. Will continue to monitor, support and encourage according to plan of care.
[2018-09-10 16:30] VITALS: BP 122/69
--- NOTE | 2018-09-10 16:30 | NUR ---
CIWA 7/COWS 8 Pt is anxious, restless with fine tremors and moist skin. Will continue to monitor, support and encourage according to plan of care.
--- NOTE | 2018-09-10 18:55 | NUR ---
End of Shift Bankruptcy Law Specialist provided report on 28 year old male admitted to [facility] on 09/08/18 for medical management of Opiate and Benzodiazepine withdrawals. Pt endorses NKA, full code and regular diet. Pt denies any PMH. Endorses PPH of anxiety, depression and Schizoaffective Bipolar type. Pt currently on 5 day Valium and 5 day Subutex tapers. Pts last CIWA 7 and COWS 8, recorded at 1630. Pt no administered any PRN on this shift. Pt is A/O x4 and able to make needs known. Pt with a clear thought pattern and clear speech pattern. Pt is pre-occupied with treatment and Subutex taper. Pt concerned about addiction to Subutex. Bankruptcy Law Specialist educated pt on importance of following MD orders. Pt educated on risks and benefits of proceeding or stopping with taper. Pt decides to not take 1500 dose and is contemplating not taking 2100 dose. Pt is slow to respond and pre-occupied. Pt has been visible and interacting with peers, pt attends groups and participates. Pt is anxious, restless, has fine tremors and diaphoresis. Pt with a blunted affect and depressed mood. Bed in low position with wheels locked and side rails up x2.
--- NOTE | 2018-09-10 19:30 | NUR ---
Start of shift note Patient is a 28 year old male admitted on 09/08/2018 for medically supervised for opiate and benzo withdrawal. Patient is on a 5 day Subutex and 5 day Valium taper. Patient is on fall and seizure precautions. Per endorsement pt refused his 1500 Subutex taper medication, and did not receive any PRN medications. Patient last CIWA was 7 and COWS 8. Upon rounds patient was in room, explained plan of care and medication regimen and he verbalized understanding. Safety measures in place bed locked in lowest position, side rails up x2, and call light within reach. Will continue to monitor.
[2018-09-10 20:00] VITALS: BP 95/51
--- NOTE | 2018-09-10 20:00 | NUR ---
CIWA and COWS Assessment Patient is presenting with anxiety, agitation, tremors, sweats and stuffy nose. Patients CIWA is 8 and COWS 7. Safety measures in place will continue to monitor.
[2018-09-10] MEDS: HYDROXYZINE PAMOATE 25 MG CAPSULE PO PRN (21:51)
[2018-09-10] MEDS: diphenhydrAMINE 50 MG CAPSULE PO PRN (21:51)
--- NOTE | 2018-09-10 21:51 | NUR ---
PRN Benadryl and Vistaril Patient is presenting with anxiety and difficulty falling asleep. Administered PRN Benadryl and Vistaril and he tolerated well. Safety measures in place will continue to monitor.
--- NOTE | 2018-09-10 22:51 | NUR ---
PRN Benadryl and Vistaril Reassessment Patient was in bed resting with eyes close and breathing even and unlabored. Medication noted to be effective. Will continue to monitor.
[2018-09-11] VITALS: BP 119/65
--- NOTE | 2018-09-11 | NUR ---
COWS and CIWA Deferred Patient was in bed resting with eyes closed, breathing even and unlabored. Per protocol COWS and CIWA is to be assessed while patient is awake. Safety measures in place, will continue to monitor.
[2018-09-11 04:00] VITALS: BP 112/69
--- NOTE | 2018-09-11 07:31 | NUR ---
End of shift note Patient is a 62 year old male admitted on 09/09/2018. Patient id here for ETOH and Opiate withdrawal. Patient is on a 4 day Ativan and a 3 day Subutex taper. Patient is on fall and seizure precautions. Patients last CIWA was 12 and COWS was 13. Patient had PRN Vistaril and Benadryl during this shift. Pt did not use the CPAP during this shift, he refused it because he said the alarm and the pressure did not allow him to sleep well the night well. Patient slept for 10 hours and had a total intake of 1,000ml. Patient voided x1 and had no bowel movements. Breathing is even and unlabored with no signs of acute distress. Safety measures in place bed locked in lowest position, side rails up x2, and call light within reach. Will endorse to day shift. Addendum: 09/11/18 at 0736 by KEILY ESPINOZA RN pasted the wrong patient information from another pt.
--- NOTE | 2018-09-11 07:36 | NUR ---
End of shift note Patient is a 28 year old male admitted on 09/08/2018 for medically supervised for opiate and benzo withdrawal. Patient is on a 5 day Subutex and 5 day Valium taper. Patient is on fall and seizure precautions. Patient had PRN Benadryl and Vistaril during this shift. Patient last CIWA was 8 and COWS 7. Patient slept for 8 hours and had a total intake of 1,100ml. Patient voided x1 and had no bowel movements. Safety measures in place bed locked in lowest position, side rails up x2, and call light within reach. Will endorse to day shift.
--- NOTE | 2018-09-11 07:40 | NUR ---
START OF SHIFT Endorse rcvd from ongoing nurse, client is is room, lying on his L side, he sounds asleep, easy to awaken, RR 14 even, non-labored. Last CIWA 7 @ 1999. PRN Vistaril 50mg PO for anxiety, Benadryl 50mg for insomnia, client slept 8hrs. [place] precautions. Call light within reach. Will continue to monitor.
[2018-09-11 08:55] VITALS: BP 97/56
--- NOTE | 2018-09-11 08:55 | NUR ---
CIWA 11 Client reports agitation, anhedonia, anxiety, cold/chills, sweats, depression, difficulty concentrating, difficult thinking clearly, tremors, muscle, sweating, and fatigue. He requests to take his medication close to 10:00 a.m. he wants to sleep now. Call light within reach.
[2018-09-11] MEDS ORDERED: BUPRENORPHINE HCL 2 MG TAB.SUBL SL SCH (09:00)
[2018-09-11] MEDS: MULTIVITAMINS,THERAPEUTIC TABLET PO SCH (09:00)
[2018-09-11] MEDS: DIAZEPAM 5 MG TABLET PO SCH ×3 (09:00→20:30)
[2018-09-11 12:31] VITALS: BP 112/63
--- NOTE | 2018-09-11 12:55 | NUR ---
[facility] 11 Client is in room, he presents with anxious mood, flat affect, agitation, difficulty concentrating, yawning, runny nose, and watery eyes. Non-pharmacologic measures rendered. Call light within reach. Will continue to monitor.
[2018-09-11] MEDS: BUPRENORPHINE HCL 2 MG TAB.SUBL SL SCH ×2 (15:55→20:32)
--- NOTE | 2018-09-11 15:55 | NUR ---
[facility] 12 Client is in room, he presents with anxious mood, flat affect, agitation, flushed facial skin, difficulty concentrating, yawning, runny nose, and watery eyes. Schedule Subutex 2mg SL, Valium 5mg PO administered. Call light within reach.
[2018-09-11 16:35] VITALS: BP 121/64
--- NOTE | 2018-09-11 19:05 | NUR ---
END OF SHIFT Endorse client to incoming nurse, client is in room, a/o x 4. Client continues to present with anxious mood, flat affect, agitation, flushed facial skin, difficulty concentrating, yawning, runny nose, and watery eyes. Client is on 3rd of 5 day Valium / 5 day Subutex taper. Additional education required on taper medications. Last CIWA 12 @ 1600. Client attends to 2/3 of group therapy. Client consumed 50-75% of meals. Adequate PO fluid intake 1800mL, void x 2, stool x 1. [place] precautions. Call light within reach.
--- NOTE | 2018-09-11 19:30 | NUR ---
START OF SHIFT Received patient awake, alert, and oriented x4. Patient is a 28 year old male admitted for medically supervised detox from heroin and ativan with secondary diagnoses of anxiety, depression, schizotypal personality disorder, and bipolar disorder. Per endorsement, patient is on the third day of his five day subutex and valium taper and was generally compliant with the therapeutic plan during the AM shift. Last COWS score was 12 and CIWA was 10 at 1600. No PRN medications were administered by AM nurse. Will continue to monitor.
--- NOTE | 2018-09-11 20:00 | NUR ---
COWS = 11, CIWA = 10 Patient continues to present with mild sweats, mild tremors, anxiety, agitation, and restlessness. COWS score is 11 and CIWA score is 10 at this time. Patient requests some PRN medications for symptomatic relief. Will continue to monitor.
[2018-09-11 20:17] VITALS: BP 107/64
[2018-09-11] MEDS: diphenhydrAMINE 50 MG CAPSULE PO PRN (20:31)
[2018-09-11] MEDS: CLONIDINE HCL 0.1 MG TABLET PO PRN (20:31)
--- NOTE | 2018-09-11 20:31 | NUR ---
PRN MEDICATION ADMINISTRATION Patient reports symptoms of anxiety, mild chills, and difficulty falling asleep. Patient requests PRN medications Clonidine and Benadryl. Will continue to monitor and reassess in one hour.
--- NOTE | 2018-09-11 21:31 | NUR ---
PRN MEDICATION REASSESSMENT Patient reports relief from anxiety and mild chills. Patient is currently in activity room. He reports feeling sleepy. PRN medication Clonidine noted to be effective. Will continue to monitor.
--- NOTE | 2018-09-12 | NUR ---
VITALS AND COWS/CIWA DEFERRED Patient noted lying in bed with eyes closed and respirations even and unlabored. HOB and bilateral side rails raised for safety. Bed in a low and locked position. Call light is within reach. Vital signs and COWS/CIWA assessment deferred. Seizure and fall precautions maintained. Will continue to monitor.
--- NOTE | 2018-09-12 04:00 | NUR ---
VITALS AND COWS/CIWA DEFERRED Patient is noted lying in bed with eyes closed and even and unlabored breathing. HOB and bilateral side rails raised. Call light within reach. Vital signs refused and COWS/CIWA assessment deferred. Will continue to monitor.
--- NOTE | 2018-09-12 07:17 | NUR ---
END OF SHIFT Patient is noted lying in bed with eyes closed and even, unlabored respirations. Patient is a 28 year old male admitted for medically supervised detox from heroin and ativan with secondary diagnoses of anxiety, depression, schizotypal personality disorder, and bipolar disorder. Patient is beginning the fourth day of his five day subutex and valium taper. He remained generally compliant with the therapeutic plan. Patient participated in group at the beginning of shift and reported having anxiety and difficulty falling asleep. He requested PRN medications Clonidine and Benadryl. PRN meds were noted to be effective. Patient slept for about 6 hours. Last COWS was 11 and last CIWA was 10. Endorsed to AM nurse.
--- NOTE | 2018-09-12 07:30 | NUR ---
START OF SHIFT Endorse rcvd from ongoing nurse, client is is room, lying on his back he sounds asleep, easy to awaken, RR 16 even, non-labored. Last CIWA @ 1999. PRN Clonidine 0.1mg PO for agitation, Benadryl 50mg for insomnia, client slept 6hrs. [place] precautions. Call light within reach. Will continue to monitor.
--- NOTE | 2018-09-12 07:55 | NUR ---
Nursing notes Client declines blood drawn at this time, he would like to continue sleeping.
[2018-09-12 08:42] VITALS: BP 118/66
--- NOTE | 2018-09-12 09:50 | NUR ---
CIWA / 12 Client is a/o x 4, reports agitation, anhedonia, anxiety, cold/chills, sweats, depression, difficulty concentrating, difficult thinking clearly, tremors felt, muscle aches, sweating, and fatigue.Subutex 2mg SL, Valium 5mg PO administered. Call light within reach.
[2018-09-12] MEDS: BUPRENORPHINE HCL 2 MG TAB.SUBL SL SCH ×3 (09:51→20:18)
[2018-09-12] MEDS: MULTIVITAMINS,THERAPEUTIC TABLET PO SCH (09:51)
[2018-09-12] MEDS: DIAZEPAM 5 MG TABLET PO SCH ×2 (09:52→20:18)
--- NOTE | 2018-09-12 12:50 | NUR ---
[facility] 12 Client is in room, he presents with anxious mood, flat affect, agitation, difficulty concentrating, yawning, runny nose, and watery eyes. Non-pharmacologic measures rendered. Call light within reach. Will continue to monitor.
[2018-09-12 12:58] VITALS: BP 120/62
--- NOTE | 2018-09-12 15:33 | NUR ---
CIWA / 11 Client continues to present with anxious mood, flat affect, agitation, flushed facial skin, difficulty concentrating, yawning, runny nose, and watery eyes. Schedule Subutex 2mg SL administered. Call light within reach.
[2018-09-12 16:55] VITALS: BP 111/67
--- NOTE | 2018-09-12 19:16 | NUR ---
END OF SHIFT Endorse client to incoming nurse, client is in break room. Client continues to present with anxiety, flat affect, agitation, flushed facial skin, yawning, runny nose, and fatigue. Client is on 4rd of 5 day Valium / 5 day Subutex taper. Last CI 11 @ 1530. Client attends to 2/3 of group therapy. Client consumed 50-75% of meals. Adequate PO fluid intake 2151mL, void x 3. [place] precautions. Call light within reach.
--- NOTE | 2018-09-12 19:30 | NUR ---
START OF SHIFT Received patient awake, alert, and oriented x4. Patient is a 28 year old male admitted for medically supervised detox from Heroin and Ativan with secondary diagnoses of anxiety, depression, schizotypal personality disorder, and bipolar disorder. Per endorsement, no PRNs were given in the last shift. Patient is noted attending therapy in the activity room and is noted with restlessness, facial flushing, yawning, and fatigue. Last COWS is 11 and last CIWA is 11. No negative symptoms reported at this time. Will continue to monitor for safety.
[2018-09-12 20:00] VITALS: BP 108/62
--- NOTE | 2018-09-12 20:00 | NUR ---
COWS = 10, CIWA = 10 Patient continues to present with anxiety, restlessness, mild flushing and tremors. Patient noted to be sitting up in bed with bilateral side rails raised for safety. Call light within reach. Will continue to monitor.
[2018-09-12] MEDS: diphenhydrAMINE 50 MG CAPSULE PO PRN (20:17)
--- NOTE | 2018-09-12 20:31 | NUR ---
PRN MEDICATION ADMINISTRATION Patient reported difficulty sleeping and requested a sleep aid. PRN med Benadryl 50 mg PO was given per MD orders. Will reassess for effectiveness.
--- NOTE | 2018-09-12 21:31 | NUR ---
PRN MEDICATION REASSESSMENT Patient noted to be lying in bed with eyes closed and even and unlabored respirations. Call light within reach. No signs and symptoms of distress noted. PRN medication noted to be effective Will continue to monitor.
--- NOTE | 2018-09-13 | NUR ---
VITALS AND COWS/CIWA DEFERRED Patient noted lying in bed with eyes closed and even, unlabored respirations. No distress, s/s of pain, or facial grimacing noted. HOB and bilateral side rails up for safety. Call light within reach. Vital signs refused and COWS/CIWA deferred. Will continue to monitor.
--- NOTE | 2018-09-13 02:08 | NUR ---
COWS = 10, CIWA = 10 Patient continues to present with anxiety, restlessness, mild flushing and tremors. Patient noted to be sitting up in bed with bilateral side rails raised for safety. Call light within reach. Will continue to monitor. Addendum: 09/13/18 at 0212 by AISSATOU KELSEY RN Wrong time Correct time is 1999
--- NOTE | 2018-09-13 07:20 | NUR ---
BEGINNING OF SHIFT Patient received in bed with eyes closed, respirations even and unlabored, responsive to verbal stimuli. Patient endorsement report received from slot shift supervisor nurse, all pertinent information was discussed. Per slot shift supervisor patient slept for 9 hours. received PRN: Benadryl. Last COW score of: 10, and last CIWA score of: 10. Will continue to monitor safety measures in place. call light with in reach, will continue to monitor.
--- NOTE | 2018-09-13 07:25 | NUR ---
END OF SHIFT Patient is noted in bed with eyes closed and even, unlabored respirations. Patient is a 28 year old male admitted for medically supervised detox from Heroin and Ativan with secondary diagnoses of anxiety, depression, schizotypal personality disorder, and bipolar disorder. Patient remained stable during the shift and did not report many significant negative symptoms. PRN medication Benadryl was administered for difficulty sleeping. Patient slept for about 9 hours this shift. Last COWS was 10 and CIWA was 10. Endorsed to oncoming AM nurse.
[2018-09-13 08:16] VITALS: BP 106/65
[2018-09-13] MEDS: MULTIVITAMINS,THERAPEUTIC TABLET PO SCH (08:26)
[2018-09-13] MEDS ORDERED: DIAZEPAM 5 MG TABLET PO SCH (09:00)
[2018-09-13] MEDS ORDERED: BUPRENORPHINE HCL 2 MG TAB.SUBL SL SCH (09:00)
--- NOTE | 2018-09-13 09:10 | NUR ---
COW/CIWA ASSESSMENT Patient was noted exhibiting the following s/sx of withdrawal during shift: c/o chills, enlarged pupils, tremors that can be felt, yawning, anxiety, and agitation, with current COW score of: 6, and current CIWA score of:9.
--- NOTE | 2018-09-13 10:38 | NUR ---
Therapist prompted client to attend group therapy.
[2018-09-13 12:45] VITALS: BP 120/76
[2018-09-13] MEDS: HYDROXYZINE PAMOATE 25 MG CAPSULE PO PRN ×2 (12:45→20:22)
--- NOTE | 2018-09-13 12:45 | NUR ---
PRN VISTARIL pt anxious and restless. Vistaril po prn per MD order given.
--- NOTE | 2018-09-13 13:45 | NUR ---
VISTARIL REASSESSMENT Patient reports medication effective, decrease in anxiety, will continue to monitor.
[2018-09-13 17:13] VITALS: BP 107/52
--- NOTE | 2018-09-13 17:16 | NUR ---
COW/CIWA ASSESSMENT Continues to present with:c/o chills, enlarged pupils, tremors that can be felt, yawning, anxiety, and agiation, with current COW score of: 6, and current CIWA score of:9.
--- NOTE | 2018-09-13 19:02 | NUR ---
END OF SHIFT Patient continues under closer observation, alert and oriented x4, patient with admitting Dx: Opiate/BZO withdrawal. Patient received last dose of Valium taper and Subutex taper. Scheduled to be discharged tomorrow morning, will continue to monitor closely. Patient was noted exhibiting the following s/sx of withdrawal during shift: c/o chills, enlarged pupils, tremors that can be felt, yawning, anxiety, and agitation, with last COW score of: 6, and last CIWA score of:9. Patient appears anxious with anxious mood. Easily overwhelmed and noted guarded with flat affect. Encouraged maintenance of personal space and hygiene, noted odorous and disheveled with poor regards to hygiene. Linen change offered and declined. Provided with calming reassurance as needed. Encouraged utilization of non pharmacological interventions as needed. Encouraged to attend group therapies/sessions to learn new coping skills to prevent relapse. Denies SI/HI. Patient endorsed to assistant shift supervisor nurse, all pertinent information was discussed.
--- NOTE | 2018-09-13 19:35 | NUR ---
START OF SHIFT NOTE Rcvd report from outgoing nurse. Pt is a 28 y/o male A/O to person, place, time, and purpose. Pt was admitted for medically supervised withdrawal from Benzodiazepines and Opiates. Pt completed a 5 day Valium and Subutex taper. Pt is scheduled for discharge on 09/14. Pt has been presenting w/ anxiety, restlessness, and depressed and withdrawn mood. Pt rcvd PRN Vistaril and was noted effective by outgoing nurse. Last CIWA 9 and COWES 6 @ 1600. Call light is within reach. Pt will continue to be monitored and needs met.
[2018-09-13 20:04] VITALS: BP 117/70
--- NOTE | 2018-09-13 20:04 | NUR ---
CIWA AND COWS ASSESSMENT CIWA 9 and COWS 6. Pt has been presenting w/ anxiety, restlessness, and depressed and withdrawn mood. V/S: T:98.4, P:84, RR:22, SPO2:97, BP:117/70.
--- NOTE | 2018-09-13 20:04 | NUR ---
START OF SHIFT NOTE Rcvd report from outgoing nurse. Pt is a 28 y/o male A/O to person, place, time, and purpose. Pt was admitted for medically supervised withdrawal from Benzodiazepines and Opiates. Pt completed a 5 day Valium and Subutex taper. Pt is scheduled for discharge on 09/14. Pt has been presenting w/ anxiety, restlessness, and depressed and withdrawn mood. Pt rcvd PRN Vistaril and was noted effective by outgoing nurse. Last CIWA 9 and COWLUDY 6 @ 1600. Call light is within reach. Pt will continue to be monitored and needs met. Addendum: 09/13/18 at 2017 by ORVILLE JANE RN WRONG TIME
[2018-09-13] MEDS: diphenhydrAMINE 50 MG CAPSULE PO PRN (20:22)
[2018-09-13] MEDS: CLONIDINE HCL 0.1 MG TABLET PO PRN (20:22)
--- NOTE | 2018-09-13 20:22 | NUR ---
PRN BENADRYL, CLONIDINE, AND VISTYARIL ADMINISTRATION Benadryl 50mg for sleep, Clonidine 0.1mg and Vistaril 50mg for anxiety were given. Will reassess pt in 1 hr.
--- NOTE | 2018-09-13 21:22 | NUR ---
PRN BENADRYL, CLONIDINE, AND VISTARIL REASSESSMENT Pt states relief from anxiey. Pt states they feel about ready to fall asleep. Pt will close hs eyes and turn down volume on TV. Will continue to monitor pt.
--- NOTE | 2018-09-14 | NUR ---
CIWA AND COWS DEFERRED Pt is in bed w/ his eyes closed. Pt's respirations are unlabored and even.
--- NOTE | 2018-09-14 04:08 | NUR ---
CIWA AND COWS DEFERRED Pt is in bed w/ his eyes closed.Pt's respirations are unlabored and even.
--- NOTE | 2018-09-14 07:01 | NUR ---
END OF SHIFT NOTE Endorsed pt to oncoming nurse. Pt is a 28 y/o male A/O to person, place, time, and purpose. Pt was admitted for medically supervised withdrawal from Benzodiazepines and Opiates. Pt completed a 5 day Valium and Subutex taper. Pt is scheduled for discharge on 09/14. Pt continued presenting w/ anxiety, restlessness, and depressed and withdrawn mood. Pt denies any S/I or H/I. PRN Vistaril, Clonidine, and Benadryl were given and noted effective. Pts fluid intake was 855ml and he slept for 9hrs. Last CIWA 9 and COWES 6 @ 1999. Call light is within reach.
--- NOTE | 2018-09-14 07:45 | NUR ---
Start of shift note; Received report from night nurse. Patient is a 28 year old male admitted on 09/08/18 for Opiate/Benzodiazepine withdrawal. Patient received PRN Benadryl, Clonidine and Vistaril noted to be effective. Patient's last CIWA score is 9 and last COWS score is 6 per endorsement. Patient slept for 9 hours. All safety measures secured. Will continue to monitor patient.
[2018-09-14 08:00] VITALS: BP 116/73
--- NOTE | 2018-09-14 08:00 | NUR ---
COWS/CIWA Assessment; Patent is [id number], presented with anxiety, irritability, complaining of muscle aches and intermittent sweats. Patient completed treatment without any adverse reactions. Patient's COWS score is 6 and CIWA of 8. Patient is scheduled for discharge tomorrow, to be transferred to [facility]. Patient made aware, patient verbalized understanding.
[2018-09-14] MEDS: MULTIVITAMINS,THERAPEUTIC TABLET PO SCH (08:32)
[2018-09-14 12:00] VITALS: BP 104/70
--- NOTE | 2018-09-14 12:00 | NUR ---
COWS/CIWA Assessment; Patent is [id number], presented with anxiety, irritability, complaining of muscle aches and intermittent sweats. Patient's COWS score continues to be 6 and CIWA of 8. Patient is scheduled for discharge tomorrow, to be transferred to [facility]. Patient made aware, patient verbalized understanding.
[2018-09-14 16:00] VITALS: BP 104/70
--- NOTE | 2018-09-14 18:41 | NUR ---
End of shift note Patent is [id number], presented with anxiety, irritability, complaining of muscle aches and intermittent sweats. Patient's last COWS score is 6 and CIWA of 8 at 1600. Patient is scheduled for discharge tomorrow, to be transferred to [facility]. No PRN medications noted. All safety measures secured. Met all needs.
--- NOTE | 2018-09-14 19:43 | NUR ---
START OF SHIFT NOTE Rcvd report from outgoing nurse. Pt is a 28 y/o male A/O to person, place, time, and purpose. Pt was admitted for medically supervised withdrawal from Benzodiazepines and Opiates. Pt completed a 5 day Subutex and Valium taper. Pt is scheduled for discharge on 09/15. Pt has been presenting w/ anxiety, depressed and withdrawn mood, flat affect, restlessness, and tremors. Pt rcvd no PRN medications during previous shift. Last CIWA 8 and COWS 6 @ 1600. Call light is within reach. Pt will continue to be monitored and needs met.
[2018-09-14 20:04] VITALS: BP 111/61
--- NOTE | 2018-09-14 20:05 | NUR ---
CIWA AND COWS ASSESSMENT CIWA 7 and COWS 6. Pt has been presenting w/ anxiety, depressed and withdrawn mood, flat affect, restlessness, and tremors. V/S: T:98.3, P:89, RR:14, SPO2:98, BP:111/61.
[2018-09-14] MEDS: HYDROXYZINE PAMOATE 25 MG CAPSULE PO PRN (20:34)
[2018-09-14] MEDS: CLONIDINE HCL 0.1 MG TABLET PO PRN (20:34)
[2018-09-14] MEDS: diphenhydrAMINE 50 MG CAPSULE PO PRN (20:34)
--- NOTE | 2018-09-14 20:34 | NUR ---
PRN BENADRYL, CLONIDINE, AND VISTARIL ADMINISTRATION Benadryl 50mg for sleep, and Clonidine 0.1mg and Vistaril 50mg for anxiety were given. Will reassess pt in 1 hr.
--- NOTE | 2018-09-14 21:34 | NUR ---
PRN BENADRYL, CLONIDINE, AND VISTARIL REASSESSMENT Pt states relief from anxiety and states is ready to fall asleep. Pt is in bed w/ the light and TV of. Will continue to monitor pt.
--- NOTE | 2018-09-15 00:05 | NUR ---
CIWA AND COWS DEFERRED Pt is in bed w/ his eyes closed. Pt's respirations are unlabored and even.
--- NOTE | 2018-09-15 04:05 | NUR ---
CIWA AND COWS DEFERRED Pt is in bed w/ his eyes closed. Pt's respirations are unlabored and even.
--- NOTE | 2018-09-15 07:04 | NUR ---
END OF SHIFT NOTE Endorsed pt to oncoming nurse. Pt is a 28 y/o male A/O to person, place, time, and purpose. Pt was admitted for medically supervised withdrawal from Benzodiazepines and Opiates. Pt completed a 5 day Subutex and Valium taper. Pt is scheduled for discharge on 09/15. Pt has been presenting w/ anxiety, depressed and withdrawn mood, flat affect, restlessness, and tremors. Pt denies any S/I or H/I. PRN Benadryl, Clonidine, and Vistaril were given and noted effective. Pts fluid intake was 500ml and he slept for 7hrs. Last CIWA 8 and COWS 6 @ 1999. Call light is within reach.
[2018-09-15 08:01] VITALS: BP 104/63
--- NOTE | 2018-09-15 08:05 | NUR ---
START OF SHIFT: Received Pt A/O X 4. He presents with irritable mood and congruent affect. He reports some anxiety about upcoming discharge. COWS 5 CIWA 3 Tapers were completed. Offered support and encouragement. Will continue with discharge planning and medicate as ordered.
[2018-09-15] MEDS: MULTIVITAMINS,THERAPEUTIC TABLET PO SCH (08:30)
--- NOTE | 2018-09-15 09:50 | NUR ---
DISCHARGE: Pt is A/O X 4. He denies S/I and H/I.Educated Pt on discharge instructions. He expressed verbal understanding of education. Belongings returned. [facility] escorted pt to [facility] where he was transported by [facility] to [facility].
== END 2018-09-15 09:30 | disposition other institution (70) | DRG 895 ==
LOC: SRC 13:58
PROVIDERS: ADMIT Family Medicine Addiction Medicine; ATTEND Family Medicine Addiction Medicine
PROC: HZ2ZZZZ Detoxification Services for Substance Abuse Treatment (ICD-10-PCS; principal; 2018-09-08)
PROC: HZ41ZZZ Group Counseling for Substance Abuse Treatment, Behavioral (ICD-10-PCS; 2018-09-09)
PROC: HZ31ZZZ Individual Counseling for Substance Abuse Treatment, Behavioral (ICD-10-PCS; 2018-09-10)
DX: F11.23 Opioid dependence with withdrawal (principal); F13.230 Sedative, hypnotic or anxiolytic dependence with withdrawal, uncomplicated; F17.210 Nicotine dependence, cigarettes, uncomplicated; F12.10 Cannabis abuse, uncomplicated; R74.0 Nonspecific elevation of levels of transaminase and lactic acid dehydrogenase [LDH]; I95.9 Hypotension, unspecified
CPT/HCPCS: 36415; 70030-TC; 83735; 84443; 85025; 86592; 86705; 86803; 87340; 87806; G0480; Q0163